=== PATIENT | male | born 1945 | race American Indian/Alaskan Native ===

== ENCOUNTER 2017-09-11 15:43 | Emergency (ER) | payer OTHER, MEDICARE ==
[2017-09-11] MEDS ORDERED: TYLENOL PO ONE (19:40)
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
[2017-09-11 20:38] VITALS: BP 130/82
== END 2017-09-11 20:37 | disposition home or self-care (01) ==
LOC: ED 15:43
DX: S93.602A Unspecified sprain of left foot, initial encounter (principal); M25.522 Pain in left elbow; V89.2XXA Person injured in unspecified motor-vehicle accident, traffic, initial encounter; Y93.89 Activity, other specified; Y92.89 Other specified places as the place of occurrence of the external cause; Y99.8 Other external cause status
CPT/HCPCS: 72040; 99283

== ENCOUNTER 2018-10-04 10:53 | Emergency (ER) | payer OTHER, MEDICARE ==
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
[2018-10-04 20:45] VITALS: BP 137/91
== END 2018-10-04 11:57 | disposition home or self-care (01) ==
LOC: ED 10:53
DX: M54.2 Cervicalgia (principal); M54.5 Low back pain; I10 Essential (primary) hypertension; F17.200 Nicotine dependence, unspecified, uncomplicated; V89.2XXA Person injured in unspecified motor-vehicle accident, traffic, initial encounter; Y93.89 Activity, other specified; Y92.488 Other paved roadways as the place of occurrence of the external cause; Y99.8 Other external cause status
CPT/HCPCS: 99282